=== PATIENT | female | born 1985 | race Caucasian/White ===

== ENCOUNTER 2025-04-23 14:43 | Emergency (ER) | payer MEDICAID ==
[~2025-04-23] VITALS: Ht 172.7 cm; Wt 68.8 kg
--- NOTE | 2025-04-23 15:13 | Physician Documentation ---
History of Present Illness ~ Chief Complaint: Mental Health Eval Stated Complaint: SEE CHEIF Time Seen by MD: 15:17 Source: patient Mode of Arrival: POV Exam Limitations: no limitations HPI 40-year-old female in a emotional crisis of unknown etiology concerned about hurting herself with no known mental health disorders and denies taking any medications. Patient continues to say I have never been in trouble. Patient is rambling nonsensically and keeps saying is this a dream, mi dreaming. Medication Reconciliation Allergies: Coded Allergies: No Known Allergies (Unverified , 04/23/25) Review of Systems All Other Systems at this time: Reviewed and Negative Psychiatric: Reports: see HPI Physical Exam Vital Signs: RN Vital Signs have been reviewed: Yes, Temperature: 98.2, Source: Temporal, Heart Rate: 120, Respiratory Rate: 26, BP: 145/87, Pulse Oximetry: 100, Weight: 68.800 Oxygen Flow Rate: 0 Physical Exam I have reviewed the triage vitals. CONST: Well developed and well nourished. In mild emotional distress HENT: Head Atraumatic EYES: Pupils are equal, round and reactive to light. Normal conjunctiva NECK: Normal range of motion. Supple. CARDIO: Normal rate and regular rhythm. No murmurs, rubs, or gallops. S1, S2. PULM/CHEST: No respiratory distress. Lungs clear to auscultation. No wheeze ABD: Soft and nontender. Nondistended. Bowel sounds normal. No guarding. : Exam deferred MSK: No edema. No deformity. NEURO: Alert and oriented to person, place and time. Moving all extremities SKIN: Warm and dry. PSYCH: Anxious, nonsensical speech, flight of ideas Progress Results/Orders Results/Orders Orders - ELI PARK NP Med Rec (04/23/25 15:06) 1799.11 (04/23/25 15:06) Ed Po Psych Medications (04/23/25 15:06) Close Observation Level (04/23/25 15:06) Covid19 Binax Poc Result Entry (04/23/25 15:06) Substance Use Navigator (04/23/25 15:06) Regular Diet (04/23/25 Dinner) Completed Orders - ELI PARK NP Cbc/Diff (04/23/25 15:06) Hcg, Ur Ql (04/23/25 15:06) Drug Screen, Urine (04/23/25 15:06) Ethanol (04/23/25 15:06) Acetaminophen (04/23/25 15:06) Salicylate (04/23/25 15:06) TSH (04/23/25 15:06) BMP (04/23/25 15:06) Lorazepam Tablet (Ativan Tablet) (04/23/25 15:10) Ua With Microscopic (04/23/25 15:53) Medications Received in ER Medications (Trade) Dose Ordered Sig/Jorje Route PRN Reason Start Time Stop Time Status Last Admin Dose Admin (Ativan tablet) 1 mg ONCE ONCE PO 04/23/25 15:10 04/23/25 15:11 DC 04/23/25 15:16 1 MG Vital Signs 04/23/25 04/23/25 04/23/25 15:04 15:16 16:39 Temp 98.2 Pulse 120 Resp 26 26 14 B/P (MAP) 145/87 Pulse Ox 100 O2 Flow Rate 0 Laboratory Tests Test 04/23/25 15:22 04/23/25 15:53 White Blood Count 8.6 Red Blood Count 4.99 Hemoglobin 10.4 L Hematocrit 33.5 L Mean Corpuscular Volume 67.2 L Mean Corpuscular Hemoglobin 20.8 L Mean Corpuscular Hemoglobin Concent 31.0 L Red Cell Distribution Width 17.6 H Platelet Count 416 Mean Platelet Volume 8.6 Neutrophils (%) (Auto) 63.6 Lymphocytes (%) (Auto) 28.4 Monocytes (%) (Auto) 7.1 Eosinophils (%) (Auto) 0.3 Basophils (%) (Auto) 0.6 Neutrophils # (Auto) 5.5 Lymphocytes # (Auto) 2.4 Monocytes # (Auto) 0.6 Eosinophils # (Auto) 0.0 Basophils # (Auto) 0.1 CBC Comment Sodium Level 141 Potassium Level 3.7 Chloride Level 107 Carbon Dioxide Level 21.6 L Anion Gap 12 Blood Urea Nitrogen 10 Creatinine 1.09 H Estimated GFR/1.73 m2 56 BUN/Creatinine Ratio 9.2 L Glucose Level 134 H Calcium Level 9.2 Albumin 3.7 Thyroid Stimulating Hormone (TSH) 1.24 Chemistry Comments Salicylates Level 0.0 L Acetaminophen Level < 2.0 L Ethyl Alcohol Level < 10 Urine Specimen Description Voided Urine Color Yellow Urine Clarity Slightly cloudy Urine pH 6.0 Urine Specific [place] 1.020 Urine Protein Negative Urine Glucose (UA) Negative Urine Ketones Negative Urine Occult Blood Large H Urine Nitrite Negative Urine Bilirubin Negative Urine Urobilinogen 0.2 Urine Leukocyte Esterase Trace H Urine RBC 50-100 Urine WBC 5-10 H Urine Squamous Epithelial Cells Moderate Urine Bacteria None seen Urine Mucus None seen Volume Urine Centrifuged 10 ml Urine HCG, Qualitative Negative Urine Comment Urine Opiates Screen Negative Urine Methadone Screen Negative Urine Fentanyl Screen Negative Urine Barbiturates Screen Negative Urine Phencyclidine Screen Negative Urine Amphetamines Screen Negative Urine Benzodiazepines Screen Negative Urine Cocaine Screen Negative Urine Cannabinoids Screen Negative Drug Screen Comment SARS-CoV-2 Antigen (Rapid) Negative Medical Decision Making Additional information obtaine: old records Findings - Differential Dx:Considerations: Include: Anxiety, Depression Differential Diagnosis 40-year-old female presenting with acute onset emotional distress and what appears to be psychosis. Patient is very worried and is unsure what happened to her. She is not making sense when she speaks. Labs were ordered and the patient is now medically cleared for psychiatric evaluation. A 1799 hold was placed. Patient is awaiting psychiatric evaluation. Departure Impression: Primary Impression: Acute psychosis Referrals: NO PRIMARY CARE PROVIDER (PCP) Signature Scribe Signature: No scribe Attestation: The note accurately reflects work and decisions made by me.Eli Park - [employer] 04/23/25 18:34 ELI PARK NP Apr 23, 2025 15:13 SHAUNA BENTON MD Apr 23, 2025 15:34
[2025-04-23 16:00] LABS: MEAN PLATELET VOLUME 8.6 FL (7.4-10.4)
[2025-04-23 16:04] LABS: LEUKOCYTE ESTERASE ,URINE TRACE (Neg); NITRITES, URINE NEGATIVE (Neg); OCCULT BLOOD,URINE LARGE (Neg)
[2025-04-23 16:05] LABS: URINE HCG NEGATIVE (NEG)
[2025-04-23 16:09] LABS: UA COLLECTION TYPE VOIDED
[2025-04-23 16:10] LABS: CREATININE 1.09 MG/DL (0.40-0.90); ETHANOL < 10 MG/DL (<10); TOTAL CARBON DIOXIDE 21.6 MMOL/L (24-32); eCRCL 69 ML/MIN; eGFR 56 ML/MIN
[2025-04-23 16:11] LABS: MUCUS STRANDS NONE SEEN /LPF (Neg); SQUAMOUS EPITHELIAL CELL,UR MODERATE /LPF (FEW)
[2025-04-23 16:18] LABS: RED CELL DISTRIBUTION WIDTH 17.6 % (11.5-14.5)
[2025-04-23 16:44] LABS: URINE AMPHETAMINE SCREEN NEGATIVE (Neg); URINE BARBITUATE SCREEN NEGATIVE (Neg); URINE BENZODIAZEPINES SCREEN NEGATIVE (Neg); URINE CANNABINOID SCREEN NEGATIVE (Neg); URINE COCAINE SCREEN NEGATIVE (Neg); URINE METHADONE SCREEN NEGATIVE (Neg); URINE OPIATE SCREEN NEGATIVE (Neg); URINE PHENCYCLIDINE SCREEN NEGATIVE (Neg)
--- NOTE | 2025-04-23 20:11 | ELECTROCARDIOGRAPH REPORT ---
[facility] Test Date: 2025-04-23 Test Time: 20:08:14 Pat Name: CASTILLO PADRON Department: [facility] Patient ID: [facility]-[id number] Room: Gender: F [employer] Sewer: : 1985 Requested By: SHAUNA BENTON Order Number: [id number] Reading MD: Dr. Luis Velazquez Measurements Intervals [place] Rate: 78 P: -12 [place]: 118 QRS: 42 QRSD: 97 T: 37 QT: 362 QTc: 413 Interpretive Statements Sinus rhythm Borderline short [place] interval Electronically Signed On 04-24-2025 11:17:[address] Luis Velazquez Please click the below link to view image of tracing.
--- NOTE | 2025-04-23 21:47 | RADIOLOGY REPORT ---
CLINICAL INDICATION: pain TECHNIQUE:4 radiographic views of the left knee were obtained. COMPARISON: None FINDINGS/IMPRESSION: There is no evidence of acute fracture or dislocation. The visualized joint space is well maintained. The alignment is anatomical. There is no radiopaque foreign body.
[2025-04-24 05:20] VITALS: PULSE 99
[2025-04-24] MEDS ORDERED: NO HOME MEDS (09:22)
[2025-04-24] MEDS ORDERED: HYDR-3686 PO (10:52)
[2025-04-24 11:16] VITALS: BP 138/82; RESP 20; TEMP 98.6; O2SAT 99
== END 2025-04-24 11:10 | disposition home or self-care (01) ==
LOC: ER 14:44
DX: F23 Brief psychotic disorder (principal); I49.8 Other specified cardiac arrhythmias; Z20.822 Contact with and (suspected) exposure to COVID-19; Z79.899 Other long term (current) drug therapy
CPT/HCPCS: 36415; 73562; 80048; 80305; 80320; 80329; 81001; 81025; 84443; 85025; 87811; 93005; 99285